=== PATIENT | female | born 1980 | race Caucasian/White ===

== ENCOUNTER → 2017-01-28 | Outpatient (CLI) | payer BC ==
--- NOTE | 2017-01-28 16:22 | XR ---
Sacrum and coccyx HISTORY: Pain 3 views of the sacrum and coccyx Bone mineralization maintained. IMPRESSION: No fracture or dislocation.
== END | disposition home or self-care (01) ==
LOC: RADXRMAIN 14:43
PROVIDERS: ATTEND Family Medicine
DX: M53.3 Sacrococcygeal disorders, not elsewhere classified (principal)
CPT/HCPCS: 72220; 81025

== ENCOUNTER → 2018-06-09 | Outpatient (CLI) | payer BC ==
--- NOTE | 2018-06-12 15:47 | MM ---
Reason for exam: clinical finding. Baseline mammogram. History: Patient had first child at age 32. Indicated problem(s): palpable abnormality in the right breast. Physical Findings: Nurse Summary: A 0.5 x 0.5 cm dominant mass in the right breast at 11 o'clock. MG 3D Diag Mammo W/Cad KAYLENE Bilateral CC and MLO view(s) were taken. The breast tissue is heterogeneously dense. This may lower the sensitivity of mammography. No discrete abnormality including area of concern. Manage on a clinical basis the palpable abnormality. These results were verbally communicated with the patient and result sheet given to the patient on 06/08/18. ASSESSMENT: Negative, BI-RAD 1 RECOMMENDATION: Routine screening mammogram of both breasts at age 41.
--- NOTE | 2018-06-12 15:50 | USB ---
History: Patient had first child at age 32. US Breast RT Right complete breast ultrasound includes all four quadrants, the retroareolar region and axilla. Finding demonstrates no cystic or solid lesion seen including area of concern. ASSESSMENT: Negative, BI-RAD 1 RECOMMENDATION: Clinical management. The palpable area on the right breast.
== END ==
LOC: RADMAMWWP 13:34
PROVIDERS: ATTEND Obstetrics & Gynecology
DX: N63.10 Unspecified lump in the right breast, unspecified quadrant (principal)
CPT/HCPCS: 77062; 77066

== ENCOUNTER → 2021-08-23 | Outpatient (CLI) | payer BC ==
--- NOTE | 2021-08-26 10:53 | MM ---
Reason for exam: screening (asymptomatic). Last mammogram was performed 3 years and 3 months ago. History: Patient had first child at age 32. Physical Findings: A clinical breast exam by your physician is recommended on an annual basis and results should be correlated with mammographic findings. MG 3D Screening Mammo W/Cad Bilateral CC and MLO view(s) were taken. Prior study comparison: June 09, 2018, bilateral MG 3d diag mammo w/cad KAYLENE. The breast tissue is heterogeneously dense. This may lower the sensitivity of mammography. There is no discrete abnormality. ASSESSMENT: Negative, BI-RAD 1 RECOMMENDATION: Routine screening mammogram of both breasts in 1 year.
== END | disposition home or self-care (01) ==
LOC: RADMAMWWP 06:57
PROVIDERS: ATTEND Obstetrics & Gynecology
DX: Z12.31 Encounter for screening mammogram for malignant neoplasm of breast (principal)
CPT/HCPCS: 77063; 77067

== ENCOUNTER → 2022-09-22 | Outpatient (CLI) | payer BC ==
--- NOTE | 2022-09-23 12:06 | MM ---
Reason for Exam: Screening (asymptomatic). Last mammogram was performed 1 year(s) and 1 month(s) ago. Patient History: Menarche at age 14. First Full-Term at age 32. Late child-bearing (after 30). Patient has history of breast feeding. Last menstrual period: 08/25/2022 Risk Values: Nanette 5 year model risk: 0.8%. NCI Lifetime model risk: 13.5%. Prior Study Comparison: 06/09/2018 Bilateral Diagnostic Mammogram, [facility]. 08/23/2021 Bilateral Screening Mammogram, [facility]. Tissue Density: The breast tissue is heterogeneously dense. This may lower the sensitivity of mammography. Findings: Analyzed By CAD. There is no suspicious group of microcalcifications or new suspicious mass in either breast. Overall Assessment: Negative, BI-RAD 1 Management: Screening Mammogram of both breasts in [address] [facility] will attempt to contact patient to return for supplemental views and ultrasound if indicated. Patient should continue monthly self-breast exams. A clinical breast exam by your physician is recommended on an annual basis. This exam should not preclude additional follow-up of suspicious palpable abnormalities. Note on Nanette scores and lifetime risk: 1. A Nanette score greater than 3% is considered moderate risk. If this is the case, consider specialist referral to assess eligibility for a risk reducing agent. 2. If overall lifetime risk for the development of breast cancer is 20% or higher, the patient may qualify for future screening with alternating mammogram and breast MRI. Electronically signed and approved by: Tj Portillo DO
== END | disposition home or self-care (01) ==
LOC: RADMAMWWP 10:08
PROVIDERS: ATTEND Obstetrics & Gynecology
DX: Z12.31 Encounter for screening mammogram for malignant neoplasm of breast (principal)
CPT/HCPCS: 77063; 77067

== ENCOUNTER → 2023-06-24 | Outpatient (CLI) | payer BC ==
--- NOTE | 2023-06-25 12:13 | US ---
EXAMINATION TYPE: US thyroid st tissue head/neck DATE OF EXAM: 06/24/2023 COMPARISON: NONE CLINICAL INDICATION: Female, 42 years old with history of R22.1 LOCALIZED SWELLING, MASS AND LUMP, NE CK; bilateral neck swelling Left > Right GLAND SIZE: Right Lobe: 3.9x1.5x1.6 cm Overall Parenchyma: heterogenous Left Lobe: 2.7x0.7x0.8 cm Overall Parenchyma: heterogenous Isthmus Thickness: 0.4 cm NODULES RIGHT: # of nodules measured on right: 1 1. 0.9 X 0.4 x 0.5 cm, mid mid, solid or almost completely solid, hypoechoic TR 4 nodule, which is wider than tall, with lobulated or irregular margins, without echogenic foci. LEFT: # of nodules measured on left: 1 1. 0.4 X 0.4 x 0.4 cm, upper mid, solid or almost completely solid, hyperechoic TR 3 nodule, which is wider than tall, with smooth margins, without echogenic foci. ISTHMUS: # of nodules measured in the isthmus: 0 Bilateral neck scanned, several small lymph nodes noted bilaterally, largest measured on each side: Right: 18 x 6 x 4 mm. Left: 10 x 6 x 5 mm. IMPRESSION: 1. Very heterogeneous thyroid gland could reflect goiter, diffuse thyroiditis, or chronic hypothyroid ism. 2. A solitary TR4 nodule measuring 9 mm on the right and TR3 nodule on the left measuring 4 mm. Short interval follow-up can be performed. 3. Some scattered prominent nonenlarged lymph nodes on both sides of the neck, probably reactive/post inflammatory.
== END | disposition home or self-care (01) ==
LOC: RADUSWWP 16:13
PROVIDERS: ATTEND Family Medicine
DX: E04.2 Nontoxic multinodular goiter (principal); R22.1 Localized swelling, mass and lump, neck
CPT/HCPCS: 76536

== ENCOUNTER → 2023-09-29 | Outpatient (CLI) | payer BC ==
--- NOTE | 2023-09-30 09:33 | MM ---
Reason for Exam: Screening (asymptomatic). Last screening mammogram was performed 12 month(s) ago. Patient History: Menarche at age 14. First Full-Term at age 32. Late child-bearing (after 30). Patient has history of breast feeding. Risk Values: Nanette 5 year model risk: 0.9%. NCI Lifetime model risk: 13.4%. Prior Study Comparison: 06/09/2018 Bilateral Diagnostic Mammogram, [facility]. 08/23/2021 Bilateral Screening Mammogram, [facility]. 09/22/2022 Bilateral MG 3D screening mammo w/cad, [facility]. Tissue Density: The breasts are heterogeneously dense, which may obscure small masses. Findings: Analyzed By CAD. There is no suspicious group of microcalcifications or new suspicious mass in either breast. Benign calcifications. Overall Assessment: Benign, BI-RAD 2 Management: Screening Mammogram of both breasts in 1 year. . Patient should continue monthly self-breast exams. A clinical breast exam by your physician is recommended on an annual basis. This exam should not preclude additional follow-up of suspicious palpable abnormalities. Note on Nanette scores and lifetime risk: 1. A Nanette score greater than 3% is considered moderate risk. If this is the case, consider specialist referral to assess eligibility for a risk reducing agent. 2. If overall lifetime risk for the development of breast cancer is 20% or higher, the patient may qualify for future screening with alternating mammogram and breast MRI. Electronically signed and approved by: Lucas Moncada M.D. Radiologis
== END | disposition home or self-care (01) ==
LOC: RADMAMWWP 09:56
PROVIDERS: ATTEND Family Medicine
DX: Z12.31 Encounter for screening mammogram for malignant neoplasm of breast (principal)
CPT/HCPCS: 77063; 77067

== ENCOUNTER → 2023-10-06 | Outpatient (CLI) | payer BC ==
[2023-10-06 22:39] LABS: T4, Free (Free Thyroxine) 1.51 ng/dL (0.80-1.80)
== END | disposition home or self-care (01) ==
LOC: LABWHC1 10:41
PROVIDERS: ATTEND Internal Medicine Endocrinology, Diabetes & Metabolism
DX: E04.2 Nontoxic multinodular goiter (principal)
CPT/HCPCS: 36415; 84439; 84443

== ENCOUNTER → 2024-01-18 | Outpatient (CLI) | payer BC ==
[2024-01-18 16:39] LABS: T4, Free (Free Thyroxine) 1.5 ng/dL (0.80-1.80)
== END | disposition home or self-care (01) ==
LOC: LABWHC1 12:02
PROVIDERS: ATTEND Internal Medicine Endocrinology, Diabetes & Metabolism
DX: E04.2 Nontoxic multinodular goiter (principal)
CPT/HCPCS: 36415; 84439; 84443

== ENCOUNTER → 2024-07-19 | Outpatient (CLI) | payer BC ==
[2024-07-19 15:26] LABS: T4, Free (Free Thyroxine) 1.38 ng/dL (0.80-1.80)
== END | disposition home or self-care (01) ==
LOC: LABWHC1 09:59
PROVIDERS: ATTEND Internal Medicine Endocrinology, Diabetes & Metabolism
DX: E04.2 Nontoxic multinodular goiter (principal)
CPT/HCPCS: 36415; 84439; 84443